=== PATIENT | female | born 1980 | race Caucasian/White ===

== ENCOUNTER 2017-04-03 10:40 | Emergency (ER) | payer MEDICAID ==
[~2017-04-03] VITALS: Ht 157.5 cm; Wt 75.3 kg
--- NOTE | 2017-04-03 11:59 | NUR ---
Patient discharged to home in stable conditon. Written and verbal after care instructions given. Patient verbalizes understanding of instructions.
== END 2017-04-03 12:00 | disposition home or self-care (01) ==
LOC: ER 10:40
DX: M25.532 Pain in left wrist (principal); H57.12 Ocular pain, left eye
CPT/HCPCS: 73110; A4663

== ENCOUNTER 2018-04-27 13:37 | Emergency (ER) | payer MEDICAID ==
[~2018-04-27] VITALS: Ht 162.6 cm; Wt 81.6 kg
--- NOTE | 2018-04-27 14:58 | NUR ---
Patient discharged to home in stable conditon. Written and verbal after care instructions given. Patient verbalizes understanding of instructions.
== END 2018-04-27 14:59 | disposition home or self-care (01) ==
LOC: ER 13:37
DX: H66.91 Otitis media, unspecified, right ear (principal)
CPT/HCPCS: A4663

== ENCOUNTER 2019-11-01 14:03 | Emergency (ER) | payer MEDICAID ==
[~2019-11-01] VITALS: Ht 157.5 cm; Wt 77.1 kg
--- NOTE | 2019-11-01 15:15 | NUR ---
Gave pt RX and d/c instructions, pt verbalized understanding. Also printed, w/o recommendation, a few different types of harnesses to assist her with her child's care.
== END 2019-11-01 15:23 | disposition home or self-care (01) ==
LOC: ER 14:03
DX: M25.562 Pain in left knee (principal); M25.561 Pain in right knee
CPT/HCPCS: A4663

== ENCOUNTER 2021-02-18 10:15 | Emergency (ER) | payer MEDICAID ==
[~2021-02-18] VITALS: Ht 162.6 cm; Wt 84.8 kg
--- NOTE | 2021-02-18 10:57 | NUR ---
PT IS IN ROOM #2B. DR ZARAGOZA EVALUATED THE PT.
[2021-02-18 11:49] LABS: HEMATOCRIT 42.6 % (31.2-41.9); MEAN CORPUSCULAR HEMOGLOBIN 30.2 uug (24.7-32.8); MEAN CORPUSCULAR VOLUME 88.1 fL (75.5-95.3); PLATELET COUNT (AUTO) 349 K/uL (179-408)
[2021-02-18 12:09] LABS: BILIRUBIN,DIRECT 0.1 mg/dL (0.0-0.2); BILIRUBIN,TOTAL 0.5 mg/dL (0.2-1.0); CREATININE 0.7 mg/dL (0.6-1.3); POTASSIUM 3.8 mmol/L (3.5-5.1); TOTAL PROTEIN, SERUM 8.3 g/dL (6.4-8.2)
--- NOTE | 2021-02-18 12:43 | NUR ---
PT WAS D/C'd TO HOME. D/C INSTRUCTIONS GIVEN TO THE PT BY DR ZARAGOZA.
[2021-02-18 12:45] VITALS: BP 132/65
== END 2021-02-18 12:45 | disposition home or self-care (01) ==
LOC: ER 10:15
DX: F41.9 Anxiety disorder, unspecified (principal)
CPT/HCPCS: 36415; 70030-TC; 70450; 71045; 85025; 93005; A4663

== ENCOUNTER 2022-08-01 01:14 | Emergency (ER) | payer MEDICAID ==
[~2022-08-01] VITALS: Ht 162.6 cm; Wt 83.9 kg
[2022-08-01 01:59] LABS: MEAN CORPUSCULAR HEMOGLOBIN 29.2 uug (24.7-32.8); MEAN CORPUSCULAR VOLUME 88.7 fL (75.5-95.3); PLATELET COUNT (AUTO) 347 K/uL (179-408)
[2022-08-01 02:08] LABS: *BILIRUBIN,URIN NEGATIVE (NEGATIVE); *BLOOD, URINE 3+ (NEGATIVE); *COLOR,URINE YELLOW (YELLOW); *KETONES,URINE NEGATIVE (NEGATIVE); *UROBILINOGEN,URINE 0.2 E.U./dl (NORMAL); LEUKOCYTE ESTERASE ,URINE NEGATIVE (NEGATIVE); NITRITE, URINE NEGATIVE (NEGATIVE); UGLUCOSE NEGATIVE (NEGATIVE)
[2022-08-01 02:14] LABS: CREATININE 0.9 mg/dL (0.6-1.3); POTASSIUM 3.6 mmol/L (3.5-5.1)
[2022-08-01 02:17] LABS: *CLARITY,URINE HAZY (CLEAR)
[2022-08-01 02:42] LABS: BACTERIA,URINE FEW /HPF (NONE SEEN); RBC,URINE TNTC /HPF (0-3); SQUAMOUS EPITHELIAL CELL,UR MODERATE /HPF (NONE SEEN); WBC,URINE 0-3 /HPF (0-3)
--- NOTE | 2022-08-01 04:42 | NUR ---
Patient discharged to home in stable condition. Written and verbal after care instructions given. Patient verbalizes understanding of instructions. Stressed follow up or return to ER for worsening s/s. patient is a/ox4, NAD noted. patient ambulated with steady gait
[2022-08-01 04:43] VITALS: BP 127/78
== END 2022-08-01 04:44 | disposition home or self-care (01) ==
LOC: ER 01:17
DX: O20.0 Threatened abortion (principal); Z3A.01 Less than 8 weeks gestation of pregnancy
CPT/HCPCS: 36415; 76856; 85025; 86850; 86900; 86901; A4663